=== PATIENT | female | born 1955 | race Caucasian/White ===

== ENCOUNTER 2023-03-10 14:05 | Outpatient (RCR) | payer MEDICARE, OTHER, SELFPAY ==
[2023-03-10 14:52] LABS: Appearance Urine Clear (Clear); Bilirubin Urine Negative (Negative); Blood Urine Negative (Negative); Color Urine Yellow (Yellow); Glucose Urine Negative (Negative); Ketones Urine Negative (Negative); Leukocyte Esterase Urine Negative (Negative); Nitrite Urine Negative (Negative); Protein Urine Negative (Negative); Specific Gravity Urine 1.015 (1.000-1.030); Urobilinogen Urine 0.2 (0.2-1.0); pH Urine 8.5 (5.0-8.5)
[2023-03-10 15:01] LABS: Bacteria Urine Few; RBC Urine 0-2 (0-2); Squamous Epithelial Cell Urine Few (None-Few)
== END 2023-09-06 23:59 | disposition home or self-care (01) ==
LOC: CCIC 14:05
PROVIDERS: Visit Provider Radiology Radiation Oncology
DX: R30.0 Dysuria (principal)
CPT/HCPCS: 81001; 87086; 87186; 99211